=== PATIENT | male | born 1980 | race Caucasian/White ===

== ENCOUNTER 2020-08-21 12:01 | Outpatient (REF) | payer OTHER, SELFPAY | END 2020-08-21 12:02 | disposition home or self-care (01) | LOC: HO.LAB 12:01 | PROVIDERS: Visit Provider Internal Medicine | DX: Z20.822 Contact with and (suspected) exposure to COVID-19 (principal) | CPT/HCPCS: C9803; U0003; U0005 ==

== ENCOUNTER 2020-08-22 11:57 | Outpatient (REF) | payer OTHER, SELFPAY ==
--- NOTE | ~2020-08-22 | XR_ITS ---
EXAMINATION: XR CHEST CLINICAL INFORMATION: hoarseness COMPARISON: None TECHNIQUE: 2 views of the chest were obtained. FINDINGS: No significant abnormality is noted involving the heart, lungs, mediastinum, bony thorax or soft tissues. XR/XR chest 2V IMPRESSION: Unremarkable examination.
[2020-08-22 12:25] LABS: MANUAL DIFF FLAG NO
[2020-08-22 12:30] LABS: Basophils Percent Auto 0.6 % (0-2); Eosinophils Absolute Auto 0.1 X10*3/uL (0.0-0.4); Eosinophils Percent Auto 1.4 % (0-4); Hematocrit 39.1 % (42-52); Hemoglobin 13.2 g/dl (14.0-18.0); Imm Gran Abs Auto 0.01 X10*3/uL (0.00-0.03); Imm Gran Pct Auto 0.2 % (0.0-0.4); Lymphocytes Absolute Auto 1.6 X10*3/uL (1.2-4.9); Lymphocytes Percent Auto 24.8 % (20-40); Mean Corpuscular HGB Conc 33.8 g/dl (31.0-36.0); Mean Corpuscular Hemoglobin 29.3 pg (27.0-33.0); Mean Corpuscular Volume 86.9 fL (80-98); Mean Platelet Volume 9.2 fL (9.4-12.4); Monocytes Absolute Auto 0.5 X10*3/uL (0.1-1.2); Monocytes Percent Auto 7.9 % (2-11); Neutrophils Absolute Auto 4.2 X10*3/uL (2.0-8.3); Neutrophils Percent Auto 65.1 % (45-73); Platelet Count 409 X10*3/uL (160-400); White Blood Count 6.5 X10*3/uL (4.8-10.8)
[2020-08-22 13:06] LABS: Alanine Aminotransferase 25 U/L (0-40); Albumin Level 4.6 g/dL (3.5-5.0); Alkaline Phosphatase 76 U/L (39-117); Anion Gap 12 (12-20); Aspartate Amino Transferase 23 U/L (5-37); Bilirubin Total 0.7 mg/dL (0.0-1.0); Blood Urea Nitrogen 22 mg/dL (9-16); Calcium 9.1 mg/dL (8.4-10.2); Carbon Dioxide 27 mmol/L (22-29); Chloride 103 mmol/L (96-108); Cholesterol 181 mg/dL; Estimated Glomerular Filt Rate > 60; Glucose Fasting 90 mg/dL (60-99); HDL Cholesterol 50 mg/dL; LDL Cholesterol Calculated 122 mg/dl; Potassium 4.3 mmol/L (3.3-5.1); Sodium 138 mmol/L (135-145); Triglycerides 46 mg/dL
[2020-08-22 13:24] LABS: Erythrocyte Sedimentation Rate 8 MM/HR (0-15)
[2020-08-22 13:26] LABS: Free T4 (Free Thyroxine) 0.96 ng/dL (0.71-1.85); Thyroid Stimulating Hormone 0.84 uIU/mL (0.32-4.0)
== END 2020-08-22 11:58 | disposition home or self-care (01) ==
LOC: HO.LAB 11:57
PROVIDERS: PCP Internal Medicine Medical Oncology; Visit Provider Internal Medicine Medical Oncology
DX: I10 Essential (primary) hypertension (principal); E66.09 Other obesity due to excess calories; E78.2 Mixed hyperlipidemia; R49.0 Dysphonia
CPT/HCPCS: 36415; 71046; 80053; 80061; 84439; 84443; 85025; 85652

== ENCOUNTER 2022-08-16 11:08 | Outpatient (REF) | payer OTHER, SELFPAY ==
[2022-08-16 11:24] LABS: MANUAL DIFF FLAG NO
[2022-08-16 11:58] LABS: Basophils Absolute Auto 0.1 X10*3/uL (0.0-0.2); Basophils Percent Auto 1.2 % (0-2); Eosinophils Absolute Auto 0.1 X10*3/uL (0.0-0.4); Eosinophils Percent Auto 2.4 % (0-4); Hemoglobin 14.6 g/dl (14.0-18.0); Imm Gran Abs Auto 0.01 X10*3/uL (0.00-0.03); Imm Gran Pct Auto 0.2 % (0.0-0.4); Lymphocytes Absolute Auto 1.5 X10*3/uL (1.2-4.9); Mean Corpuscular Volume 88.5 fL (80.0-98.0); Mean Platelet Volume 9.6 fL (9.4-12.4); Monocytes Absolute Auto 0.4 X10*3/uL (0.1-1.2); Monocytes Percent Auto 10.1 % (2-11); Neutrophils Percent Auto 49.1 % (45-73); Platelet Count 371 X10*3/uL (160-400); Red Blood Count 4.86 X10*6/uL (4.60-5.80); Red Cell Distribution Width 12.6 % (11.0-16.0); White Blood Count 4.2 X10*3/uL (4.8-10.8)
[2022-08-16 12:46] LABS: Alanine Aminotransferase 26 U/L (0-40); Albumin Level 4.4 g/dL (3.5-5.0); Alkaline Phosphatase 66 U/L (39-117); Anion Gap 13 (12-20); Aspartate Amino Transferase 19 U/L (5-37); Bilirubin Total 0.6 mg/dL (0.0-1.0); Blood Urea Nitrogen 13 mg/dL (9-16); Calcium 9.1 mg/dL (8.4-10.2); Carbon Dioxide 27 mmol/L (22-29); Chloride 104 mmol/L (96-108); Cholesterol 191 mg/dL; Estimated Glomerular Filt Rate > 60; Glucose Fasting 93 mg/dL (60-99); HDL Cholesterol 37 mg/dL; LDL Cholesterol Calculated 131 mg/dl; Potassium 4.7 mmol/L (3.3-5.1); Prostate Specific Antigen 0.24 ng/mL (<0.05-4.0); Sodium 139 mmol/L (135-145); Total Protein 6.8 g/dL (6.5-8.0); Triglycerides 115 mg/dL
== END 2022-08-16 11:09 | disposition home or self-care (01) ==
LOC: HO.LAB 11:08
PROVIDERS: PCP Internal Medicine Medical Oncology; Visit Provider Internal Medicine Medical Oncology
DX: E78.2 Mixed hyperlipidemia (principal); E66.9 Obesity, unspecified; N40.0 Benign prostatic hyperplasia without lower urinary tract symptoms; Z12.5 Encounter for screening for malignant neoplasm of prostate
CPT/HCPCS: 36415; 80053; 80061; 84153; 85025

== ENCOUNTER 2024-08-28 09:54 | Day surgery (SDC) | payer MEDICAID, SELFPAY ==
[2024-08-24 15:44] VITALS: BMI 30.2
[2024-08-28 10:50] VITALS: BMI 30.2
[2024-08-28] MEDS: Lactated Ringers 1,000 ML 80 ML IVCONT (10:55)
[2024-08-28 11:02] VITALS: BP 130/96; PULSE 68; RESP 18; TEMP 36.7; O2SAT 96
--- NOTE | 2024-08-28 11:44 | HO.ANESPROP2 ---
HPI - Anesthesia Eval Consult details Narrative: 44 yo male patient for EGD and Colonoscopy [facility] Past Medical History Medical History GERD (gastroesophageal reflux disease) Family History Family history of problems with anesthesia: No Surgical History Surgical History History of ankle surgery History of vocal cord polypectomy Hx of colonoscopy History of Problems with Anesthesia: No Social History Social History Are you a primary home care giver to a significant other at home: No Do you presently have visiting nurse or other home services: No Patient Tobacco Use Status: Never used Tobacco Use of substances other than those prescribed or required for medical reasons: No Have you been hit, kicked, punched, or otherwise hurt by someone within the past year? If so, by whom?: No Are you DNR?: No Advance Directives: No (will bring dos) Advance Directives Information Provided: Yes Advance Directives on File: No Poor oral hygiene: No (3 crowns) Meds Allergies Allergy/AdvReac Type Severity Reaction Status Date / Time No Known Allergies Allergy Verified 08/28/24 10:51 Active Medications: Current Medications Lactated Ringer's (Lr) 1,000 mls @ 80 mls/hr IVCONT .[id number] JASMINA Last Admin: 08/28/24 10:55 Dose: 80 mls/hr Home Medications ?Medication ?Instructions ?Recorded ?Confirmed ?Last Taken ?Type No Known Home Meds 08/24/24 08/24/24 Unknown History Exam Height,Weight and Vital Signs: Height 6 ft 2 in Weight 106.594 kg Last Vital Signs Temp 98.1 F 08/28/24 11:02 Pulse 68 08/28/24 11:02 Resp 18 08/28/24 11:02 BP 130/96 H 08/28/24 11:02 Pulse Ox 96 08/28/24 11:02 O2 Del Method Room Air 08/28/24 11:02 Airway Mallampati Class: II TM Dist: >3cm Neck ROM: Full Loose/Missing/Broken Teeth: Yes (Century teeth out. Denies broken or loose teeth. Implants in place) Heart: RRR Lungs: CTAB Assessment and Plan Assessment Anesthesia Assessment: Anesthesia Plan Discussed and Chart Reviewed Final Anesthetic Review Family History of Problems with Anesthesia: No History of Problems with Anesthesia: No NPO: Yes ASA Class: II Final Preanesthetic Review: No Changes in Pt Med Stat, Meds/Allgs Chart Reviewed, Consent Obtained/Reviewed and Anes Risks/Benef Reviewed Patient Risk: Low Procedure Risk: Low Assessment/Block/Sedation in SS: Assess/Block/Sedation-SS Anesthetic Plan Anesthetic Plan: TIVA Disposition: Standard PACU
--- NOTE | 2024-08-28 11:59 | MHC.SHP ---
Pre-Procedural Eval Section A - 24 Hr Update-Section A only Date of Service: 08/28/24 Section B - Complete if H&P > 30 days Chief Complaint: screening,gerd Details of Present Illness: see H&P no changes Relevant Family History (Specify if Yes): No Present Medications: see Short Stay Collaborative assessment Medical History: No relevant PMH Allergies: Allergies Allergy/AdvReac Type Severity Reaction Status Date / Time No Known Allergies Allergy Verified 08/28/24 10:51 Review of Systems Sugical H&P ROS: Negative: Constitution, Cardiovascular, Respiratory, Neurological, Psychiatric, Hem-Onc, Allergic/Immunologic, Gastrointestinal, Genitourinary, Musculoskeletal, Integumentary, Endocrine and Eyes/Ears/Nose/Throat Exam Surgical H&P Exam: Normal: HEENT, Normal: Heart, Normal: Lungs, Normal: Extremities, Normal: Abdomen, Normal: Skin and Normal: Neurological Plan Diagnosis/Plan: Unchanged I have reviewed the history and physical and performed a pertinent physical examination on my patient. No changes have occurred unless specified. Time Spent With Patient Time: Total time managing care of this patient today ____ minutes.
[2024-08-28 12:54] VITALS: BP 114/81; PULSE 72; RESP 20; TEMP 36.8; O2SAT 95
[2024-08-28 13:09] VITALS: BP 135/104; PULSE 60; RESP 18; TEMP 36.5; O2SAT 96
--- NOTE | 2024-08-28 13:35 | OP_ITS ---
DATE OF SERVICE: 08/28/2024 SURGEON: Fran Winston MD INDICATIONS: Gastroesophageal reflux disease, colon cancer screening. PREOPERATIVE DIAGNOSIS: POSTOPERATIVE DIAGNOSIS: PROCEDURE PERFORMED: Upper endoscopy with biopsy, colonoscopy to the terminal ileum. ESTIMATED BLOOD LOSS: COMPLICATIONS: ANESTHESIA: Monitored anesthesia care. ASSISTANTS: SPECIMENS: DESCRIPTION OF PROCEDURE: A history and physical performed. The risks and benefits of the procedure were explained to the patient and informed consent was obtained. The patient was placed in the left lateral decubitus position. A digital rectal exam was performed prior to the colonoscopy and was found to be normal. First, the Olympus videogastroscope was introduced into the esophagus, stomach, and duodenum. Examination was performed. The scope was removed. He was repositioned for colonoscopy. A digital rectal exam was performed as above. The Olympus pediatric videocolonoscope was introduced into the rectum and advanced to the cecum. The cecum was identified by transillumination, palpation, and identification of ileocecal valve. Examination was performed. The scope was removed. He tolerated both procedures well and was returned to recovery area in stable condition. FINDINGS: Upper endoscopy, esophagus: The esophagus was normal. Biopsies were obtained from the EG junction. Stomach: Stomach showed no evidence of masses, ulcers, or polyps. Antral biopsies were obtained to evaluate for H pylori. Duodenum: The bulb and 2nd portion were normal. Colonoscopy: The terminal ileum was examined and appeared normal. The visualized colonic mucosa was within normal limits without evidence of masses or ulcers. No polyps were identified. The quality of the prep was good. Retroflexed examination showed some moderate-sized internal hemorrhoids. IMPRESSION: 1. Gastroesophageal reflux disease. 2. Normal colonoscopy. RECOMMENDATIONS: 1. Follow up the biopsy results. 2. Repeat colonoscopy is recommended in 10 years for average-risk individuals. MD RACH Chow/LORENAL / [id number]
== END 2024-08-28 13:26 | disposition home or self-care (01) ==
PROVIDERS: PCP Internal Medicine Medical Oncology; Visit Provider Internal Medicine Gastroenterology
PROC: (CPT 45378; principal; 2024-08-28 11:50)
DX: Z12.11 Encounter for screening for malignant neoplasm of colon (principal); Z86.0101 Personal history of adenomatous and serrated colon polyps; Z80.0 Family history of malignant neoplasm of digestive organs; K64.8 Other hemorrhoids; K21.9 Gastro-esophageal reflux disease without esophagitis; Z79.899 Other long term (current) drug therapy; Z98.890 Other specified postprocedural states
CPT/HCPCS: 45378; 43239; 88305; 88313; 88342; J2003; J2704; J3010

== ENCOUNTER 2024-11-23 08:50 | Outpatient (REF) | payer MEDICAID, SELFPAY ==
--- OUTSIDE RECORDS SUMMARY | 2024-11-23 09:00 | XMS_ITS | Clinical Summary ---
Author Organization [facility] Address [address] [place] [address] Care Team Providers Care Bell Attendant Name Role Phone Unavailable Primary Care Provider Unavailabl e Social History Tobacco Use Types Packs/Day Years Used Date Smoking Tobacco: Never Assessed Sex and Gender Information Value Date Recorded Sex Assigned at Not on file Legal Sex Male 5:44 PM EST Gender Identity Not on file Sexual Orientation Not on file Plan of Treatment Health Maintenance Due Date Last Done Comments DTaP,Tdap,and Td Vaccines (1 - Tdap) 1998 Hepatitis B Vaccines (1 of 3 - 19+ 3-dose series) 1998 COVID-19 Vaccine (2023-2 5 season) 2024 Influenza Vaccine (#1) 2025 HIB Vaccines Aged Out No longer eligi ble based on patient's age to complete this topic HPV Vaccines Aged Out No longer eligi ble based on patient's age to complete this topic Hepatitis A Vaccines Aged Out No long er eligible based on patient's age to complete this topic IPV Vaccines Aged Out No longer eligi ble based on patient's age to complete this topic MMR Vaccines Aged Out No longer eligi ble based on patient's age to complete this topic Meningococcal ACWY Vaccine Aged Out N o longer eligible based on patient's age to complete this topic Meningococcal B Vaccine Aged Out No l onger eligible based on patient's age to complete this topic Pneumococcal Vaccine: Pediat rics (0 to 5 Years) and At-Risk Patients (6 to 49 Years) Aged Out No longer eligible b ased on patient's age to complete this topic RSV Immunization Patients Un beverly 20 months Aged Out No longer eligible b ased on patient's age to complete this topic Varicella Vaccines Aged Out No longer eligible based on patient's age to complete this topic
--- OUTSIDE RECORDS SUMMARY | 2024-11-23 09:00 | XMS_ITS | Referral Summary ---
Author Organization [facility] Address [address] [place] [address] Care Team Providers Care Multifocal Lens Inspector Name Role Phone Bola Glover Primary Care Provider [phone] Allergies No known active allergies Medications omeprazole (PriLOSEC) 40 mg capsule Take 1 capsule (40 mg total) by mouth once a day. 30 capsule 5 02/23/2023 Active Active Problems Problem Noted Date Diagnosed Date Obesity 11/06/2021 Mixed hyperlipidemia 11/06/2021 Essential hypertension 11/06/2021 Dysphonia 11/06/2021 Voice hoarseness 09/18/2021 Social History Tobacco Use Types Packs/Day Years Used Date Smoking Tobacco: Former Cigarettes 1 5 2 002 - 2006 Smokeless Tobacco: Never Tobacco Cessation:Counseling Given: Not Answered Alcohol Use Standard Drinks/Week Comments Yes 0 (1 standard drink = 0.6 oz pur e alcohol) 3 drinks per week Sex and Gender Information Value Date Recorded Sex Assigned at Male 11/09/2021 8:40 AM EDT Legal Sex Male 9:47 AM EDT Gender Identity Male 11/09/2021 8:40 AM EDT Sexual Orientation Not on file Last Filed Vital Signs Vital Sign Reading Time Taken Comments Blood Pressure 156/97 11/20/2021 9:29 AM EDT Pulse 80 11/20/2021 9:29 AM EDT Temperature 36.5 C (97.7 F) 11/10/2021 9:12 AM EDT Respiratory Rate 18 11/20/2021 9:29 AM EDT Oxygen Saturation 93% 11/20/2021 9:29 AM EDT Inhaled Oxygen Concentration - - Weight 111.8 kg (246 lb 6.4 oz) 11/10/2021 6:15 AM EDT Height 188 cm (6' 2 ) 11/09/2021 8:31 AM EDT Body Mass Index 31.64 11/09/2021 8:31 AM EDT Plan of Treatment Not on file Insurance Advance Directives * Presumed Full Code (Latest Code Status on File) Date Activated Date Inactivated Comments 11/10/2021 6:11 AM 11/10/2021 11:53 AM Care Teams Multifocal Lens Inspector Relationship Specialty Start Date End Date Bola Glover [address] [place] [address] [phone] PCP - General Hematology 08/19/21
--- OUTSIDE RECORDS SUMMARY | 2024-11-23 09:00 | XMS_ITS | Patient Health Record ---
Author Organization [facility] Address [address] [place] [address] Care Team Providers Care Operators School Manager Name Role Phone Adalberto JAMES, Bola Primary Care Provider Unavailab Fran Teran Jr Unavailable Allergies No Known Allergies Results Component Value Reference Range Notes Pathology Reviewed date:09/03/2024 10:41:15 AM Interpretation: Performing Lab:[facility], [address] [place] [phone] Notes/Report: Reason For Referral Referring Provider First Name Bola Referring Provider Last Name Adalberto Referring Provider Speciality Oncology Referred Organization [facility] Referred Provider Fran Winston Jr Referred Address [address],[place] [address] [place] [phone], Referred Provider Specialty Gastroentero logy General Notes Paula Maciel 2024 03:11:28 PM >call dr olivas office to request a [facility] for visit with Dr. Winston on 08-06-2024 cx screening [phone], Paula Maciel 07/03/2024 11:06:07 AM > requested a [facility] for visit on 08-06-[address] Winston Referral Priority Routine Referral Organization [facility] Referring Provider First Name Fran Referring Provider Last Name Catrachito Jerez Referring Provider Speciality Gastroente rology Referred Provider Bola Glover Referred Provider Specialty Oncology Referral Priority Routine Immunizations Vaccine Route Administration Date Status Comme nts Influenza Unknown 03/08/2019 Refused Influenza Unknown 08/06/2024 Refused Social History Tobacco Use: Social History Observation Description Date Details (start date - stop date) Never Smoker NA - NA Tobacco Use/Smoking Question Answer Notes Patient is a nonsmoker Alcohol Screen Question Answer Notes Did you have a drink contain ing alcohol in the past year? Yes How often did you have a dri nk containing alcohol in the past year? Monthly or less (1 point) How many drinks did you have on a typical day when you were drinking in the past year? 3 or 4 drinks (1 point) How often did you have 6 or more drinks on one occasion in the past year? Never (0 point) Points 2 Interpretation Negative Problems Problem Type SNOMED Code ICD Code Onset Dates Problem Status W/U Status Risk Notes Problem 974526703 Colon cancer screening (Z12.11) Active confirmed Problem 371207973 Encounter for ot her preprocedural examination (Z01.818) Active confirmed Problem 257772315 Gastroesophageal reflux disease, unspecified whether esophagitis present (K21.9) Active confirmed Problem 697551789 Personal history of adenomatous and serrated colon polyps (Z86.0101) Active confirmed Vital Signs Temperature 97.8 degrees Fahrenheit 08/06/2024 Blood pressure diastolic 01 mm Hg 08/06/2024 Height 74 in 08/06/2024 Blood pressure systolic 001 mm Hg 08/06/2024 Weight 243.4 lbs 08/06/2024 BMI 31.25 kg/m2 08/06/2024 Encounters Encounter Location Date Provider Diagnosis [facility] Outpatient [address] [place] [phone] 08/28/2024 Fran Winston Jr Colon cancer screening Z12.11 and Gastro-esophageal reflux disease without esophagitis K21.9 [facility] [address] [place] [phone] 08/06/2024 Fran Winston Jr Gastroesophageal reflux disease, unspecified whether esophagitis present K21.9 ; Colon cancer screening Z12.11 and Personal history of adenomatous and serrated colon polyps Z86.0101 [facility] [address] [place] [phone] 08/24/2024 Fran Winston Jr [facility] [address] [place] [phone] 09/03/2024 Fran Winston Jr Assessments Encounter Date Diagnosis (ICD Code) Assessment Notes Treatment Notes Treatment Clinical Notes Section Notes 08/28/2024 Colon cancer screening (ICD-10 - Z12.11) 08/28/2024 Gastro-esophageal reflux disease without esophagitis (ICD-10 - K21.9) 08/06/2024 Colon cancer screening (ICD-10 - Z12.11) Colonoscopy discharge material was printed We discussed gastroesophageal reflux disease today. We discussed diet, lifestyle modifications, and weight management regarding the treatment of reflux. We recommend that he continue omeprazole. Because of his longstanding symptoms of reflux which have been present for more than 5 years, we recommended further evaluation with endoscopy. We discussed risks and benefits of the procedure today. He is due for [place] rectal cancer screening. He understands risks and benefits and agrees to proceed. We discussed his history of colon polyps in detail today. We discussed the pathology of tubular adenomas. Follow-up will be in the future pending the results of his examinations. 08/06/2024 Gastroesophageal reflux disease, unspecified whether esophagitis present (ICD-10 - K21.9) We discussed gastroesophageal reflux disease today. We discussed diet, lifestyle modifications, and weight management regarding the treatment of reflux. We recommend that he continue omeprazole. Because of his longstanding symptoms of reflux which have been present for more than 5 years, we recommended further evaluation with endoscopy. We discussed risks and benefits of the procedure today. He is due for [place] rectal cancer screening. He understands risks and benefits and agrees to proceed. We discussed his history of colon polyps in detail today. We discussed the pathology of tubular adenomas. Follow-up will be in the future pending the results of his examinations. 08/06/2024 Personal history of adenomatous and serrated colon polyps (ICD-10 - Z86.0101) We discussed gastroesophageal reflux disease today. We discussed diet, lifestyle modifications, and weight management regarding the treatment of reflux. We recommend that he continue omeprazole. Because of his longstanding symptoms of reflux which have been present for more than 5 years, we recommended further evaluation with endoscopy. We discussed risks and benefits of the procedure today. He is due for [place] rectal cancer screening. He understands risks and benefits and agrees to proceed. We discussed his history of colon polyps in detail today. We discussed the pathology of tubular adenomas. Follow-up will be in the future pending the results of his examinations. Plan Of Treatment Future Test Test Name Order Date COLONOSCOPY 03/08/2019 UPPER GI ENDOSCOPY 08/06/2024 COLONOSCOPY 08/06/2024 Insurance Providers Payer Name Payer Address Payer Phone Subscriber Number Group Number Insured Name Patient Relationship to Insured Coverage Start Date Coverage End Date [employer] OF [place] [address] [place] [id number] KAMALJIT PEREZ Self - patient is the insured Medical (General) History Medical History History ICD Code Colonoscopy 06/04, tubular adenoma, 5-yea r follow-up Vocal cord polyp gerd Surgical History Surgery Date(Month/Year) ankle surgery RIGHT 2003 hand surgery LEFT 1999
[2024-11-23 09:07] LABS: MANUAL DIFF FLAG NO
[2024-11-23 09:22] LABS: Hematocrit 45.0 % (42.0-52.0); Hemoglobin 16.0 g/dl (14.0-18.0); Imm Gran Abs Auto 0.02 X10*3/uL (0.00-0.03); Imm Gran Pct Auto 0.3 % (0.0-0.4); Lymphocytes Absolute Auto 2.0 X10*3/uL (1.2-4.9); Mean Corpuscular HGB Conc 35.6 g/dl (31.0-36.0); Mean Corpuscular Hemoglobin 29.5 pg (27.0-33.0); Mean Corpuscular Volume 82.9 fL (80.0-98.0); NRBC Abs Auto 0.000 X10*3/uL (0.0-0.012); NRBC Pct Auto 0.0 /100WBC (0.0-0.2); Platelet Count 482 X10*3/uL (160-400); Red Blood Count 5.43 X10*6/uL (4.60-5.80); White Blood Count 6.4 X10*3/uL (4.8-10.8)
[2024-11-23 10:05] LABS: Alanine Aminotransferase 37 U/L (0-40); Albumin Level 4.9 g/dL (3.5-5.0); Alkaline Phosphatase 62 U/L (39-117); Anion Gap 11 (12-20); Aspartate Amino Transferase 27 U/L (5-37); Blood Urea Nitrogen 14 mg/dL (9-16); Calcium 10.0 mg/dL (8.4-10.2); Carbon Dioxide 29 mmol/L (22-29); Chloride 103 mmol/L (96-108); Cholesterol 213 mg/dL (<200); Estimated Glomerular Filt Rate > 60; HDL Cholesterol 40 mg/dL (>40); Potassium 4.5 mmol/L (3.3-5.1); Sodium 138 mmol/L (135-145); Total Protein 7.7 g/dL (6.5-8.0); Triglycerides 119 mg/dL (<150)
[2024-11-23 10:18] LABS: Prostate Specific Antigen 0.33 ng/mL (<0.05-4.0)
--- OUTSIDE RECORDS SUMMARY | 2024-11-23 12:00 | XMS_ITS ---
Author Organization Bola Glover III, MD Address [address] [place] [address] Care Team Providers Care Log Grader Name Role Phone Bola Glover Primary Care Provider [phone] Allergies Allergen (clinical drug ingredient) Drug/Non Drug Allergy documented on EMR Reaction Allergy Type Onset Date Status No Known Drug Allergy Unknown Drug Allergy Active REASON FOR VISIT Annual Exam Medications Medication SIG (Take, Route, Fr equency, Duration) Notes Start Date End Date Status Omeprazole 40 MG TAKE 1 CAPSULE BY MO UTH EVERY DAY Oral Active Social History Tobacco Use: Social History Observation Description Date Details (start date - stop date) Never Smoker NA - NA Sex Assigned At : Social History Observation Description Sex Assigned At Male Tobacco Use/Smoking Question Answer Notes Patient is a nonsmoker Additional Findings: Tobacco Non-User Aggressive non-smoker Encounters Encounter Location Date Provider Diagnosis Bola Glover III, MD [address] [place] [address] [place] [phone] 11/23/2024 Bola Glover Plan Of Treatment Medication Medication Name Sig Start Date Stop Date Notes Omeprazole 40 MG TAKE 1 CAPSULE BY MOUTH EVERY DAY Oral Next Appt Details Provider Name:Bola Glover, 11/23/2024 04:00:00 PM, [address] [place] [address] [place], [phone], Progress Notes * Rossy GAOB: [birth year] (44 yo M)Acc No.[id number]:11/23/2024 Progress Notes Patient: Anderson PIERSON Provider: Angélica Glover MD :1980 A ge:44 Y S ex:Male Date:11/23/2024 Address:[address] [place] [address] MARK, MARKOS [id number] Subjective: * Chief Complaints: * 1 . Annual Exam. * ROS: G eneral/Constitutional: pain o nly normal aches and pains. C hills d enies.?Fatigue a dmits. F ever d enies. E NT: Decreased hearing d enies. R espiratory: Cough d enies. C ardiovascular: Chest pain with exertion d enies. D yspnea on exertion?denies. S hortness of breath d enies. G astrointestinal: Constipation d enies. D ecreased appetite d enies.?Diarrhea d enies. H eartburn d enies. N ausea d enies. R ectal bleeding?denies. V omiting d enies. H ematology: bruising d enies. p etechiae d enies. S wollen glands n one have been noted. G enitourinary: Frequent urination d enies. M usculoskeletal: Muscle aches d enies. P ainful joints d enies. S ciatica d enies. W eakness d enies. S kin: Itching d enies. R caleb d enies. S kin lesion(s)?denies. N eurologic: Difficulty speaking d enies. D izziness d enies.?Headache d enies. L ow back pain d enies. P sychiatric: Depressed mood d enies. * Medical History: D SHIRA of cervical spine, Hypertriglyceridemia, history of Peyronie's disease, Right shoulder avulsion fracture, Obesity, Dysphonia, Heartburn, Weight loss, Speech issues, Potential prostate enlargement, Ear blockage. * Surgical History: d ebridement infected dog bite left hand , fracture right ankle requiring pinning , colonoscopy at 05/2019, [facility] Vocal cord biopsy 10/2021, No history . * Hospitalization/Major Diagno stic Procedure: N o history . * Family History: F ather: 57 yrs, diagnosed with Cancer. M other: 65 yrs, diagnosed with Cancer. C hildren: alive. S on(s): alive. D aughter(s): alive. S iblings: alive.?1 brother(s) - healthy. 2 son(s) , 1 daughter(s) - healthy. . His brother may have Crohn's disease. His 2 sons and 1 daughter are healthy and well without illness. Mother was 45 to 50 at diagnosis. Both of his parents from cancer. He is not aware of any family history of mental health disorders or substance use disorders. Esophageal cancer Crohn's disease Gerd. * Social History: T obacco Use: T obacco Use/Smoking Tip borges is a n onsmoker A dditional Findings: Tobacco Non-User A ggressive non-smoker Lucia chadwick was born in [place], [place] and lives in [place]. 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 He is . He has a girlfriend, Rissa. Exercise: Hiking, hunting, outdoor work Diet: Changed Work environment: probation and patrol agent Alcohol: Stopped Living situation: Lives in [place] Smoking: No. * Medications: T aking Omeprazole 40 MG Capsule Delayed Release TAKE 1 CAPSULE BY MOUTH EVERY DAY Oral , Medication List reviewed and reconciled with the patient * Allergies: N o Known Drug Allergy. Objective: * Vitals: * Examination: G eneral Examination: GENERAL APPEARANCE: p leasant, well nourished, well developed, in no acute distress, calm and relaxed. HEAD: a traumatic, normocephalic. EYES: e niesha, perrla, anicteric, conjugate. EARS: n ormal. NOSE: s eptum intact. ORAL CAVITY: n ormal, unremarkable. NECK/THYROID: n o jugular venous distention, no carotid bruit, thyroid normal. LYMPH NODES: n o enlarged lymph nodes,spleen normal. SKIN: n o suspicious lesions, anicteric. HEART: n o clicks, gallops, murmurs, or rubs, regular rhythm, S1, S2 normal, no s3, or vascular bruits. LUNGS: c lear to auscultation . BREASTS: no masses palpable bilaterally. ABDOMEN: b owel sounds normal, no ascites, no organomegaly, no mass. RECTAL EXAM: n ot examined. MUSCULOSKELETAL: e xtremities unremarkable, no clubbing, cyanosis or edema. PERIPHERAL PULSES: n ormal. NEUROLOGIC: a lert and oriented, cranial nerves 2-12 grossly intact, deep tendon reflexes 2+ symmetrical, motor strength normal upper and lower extremities, sensory exam intact. PSYCH: a lert, oriented. Assessment: Plan: * Treatment: * Images: * The named appointment provid er may or may not be the originator of this progress note, and it is not deemed complete until electronically signed by the appointment provider. Sign off status: Pending * Provider: Angélica Glover MD Date: 11/23/2024 Generated for Georgei yasir/Tobi/eTransmitting on: 11/23/2024 09:00 AM EDT History and Physical Notes * Examination Category Sub-Category Detail Notes General Examination GENERAL APPEARANCE: pleasant , well nourished, well developed, in no acute distress, calm and relaxed HEAD: atraumatic, normocep halic EYES: eomi, perrla, anicte joseph, conjugate EARS: normal NOSE: septum intact NECK/THYROID: no jugular venous di stention, no carotid bruit, thyroid normal HEART: no clicks, gallops, murmurs, or rubs, regular rhythm, S1, S2 normal, no s3, or vascular bruits LUNGS: clear to auscultatio n ABDOMEN: bowel sounds normal, no ascites, no organomegaly, no mass NEUROLOGIC: alert and oriented, cranial nerves 2-12 grossly intact, deep tendon reflexes 2+ symmetrical, motor strength normal upper and lower extremities, sensory exam intact SKIN: no suspicious lesion s, anicteric PERIPHERAL PULSES: normal BREASTS: no masses palpable b ilaterally MUSCULOSKELETAL: extremities unremark able, no clubbing, cyanosis or edema LYMPH NODES: no enlarged lymph no torsten,spleen normal RECTAL EXAM: not examined PSYCH: alert, oriented ORAL CAVITY: normal, unremarkable
== END 2024-11-23 08:51 | disposition home or self-care (01) ==
LOC: HO.LAB 08:50
PROVIDERS: PCP Internal Medicine Medical Oncology; Visit Provider Internal Medicine Medical Oncology
DX: N40.0 Benign prostatic hyperplasia without lower urinary tract symptoms (principal); E66.9 Obesity, unspecified; E78.2 Mixed hyperlipidemia
CPT/HCPCS: 36415; 80053; 80061; 84153; 85025